=== PATIENT | female | born 1975 ===

== ENCOUNTER 2017-05-28 22:07 | Emergency (ER) | payer OTHER ==
[2017-05-28 22:22] VITALS: BP 115/78; PULSE 70; RESP 19; TEMP 98.3; O2SAT 99
[2017-05-28 22:43] LABS: RBC URINE < 1 /hpf (0-3); URINE BACTERIA RARE (<OCC); URINE BILIRUBIN NEGATIVE (NEGATIVE); URINE BLOOD NEGATIVE (NEGATIVE); URINE COLOR Yellow (YELLOW); URINE GLUCOSE (UA) NORMAL (Normal); URINE KETONE NEGATIVE (NEGATIVE); URINE LEUKOCYTE ESTERASE NEG Leu/uL (Negative); URINE PROTEIN NEGATIVE (NEGATIVE); URINE UROBILINOGEN NORMAL mg/dL (0.2-1.0); WBC URINE 2 /hpf (0-5)
--- NOTE | 2017-05-28 22:49 | C.PDOC ---
History Of Present Illness 42 ye female w/PMHx of sciatica come in for evaluation of Right sided lower back pain for apst 4 days radiating down to Right leg. Pt sts, pain is gradually worse, exacerbated by movement. Pt admits, similar sx in past. Otherwise, pt denies fever, chills, known direct trauma or injury, abd. pain, N/ V, UTI sx, incontinence, saddle anesthesia, denies weakness, sensory or vascular deficits to B/L LEs. Ambulate to Ed for evaluation, not in any apparent distress. Time Seen by Provider: 05/28/17 22:26 Chief Complaint (Nursing): Back Pain History Per: Patient Onset/Duration Of Symptoms: Gradual Past Medical History Reviewed: Historical Data, Nursing Documentation, Vital Signs Vital Signs: Last Vital Signs Temp 98.3 F 05/28/17 22:18 Pulse 70 05/28/17 22:18 Resp 19 05/28/17 22:18 BP 115/78 05/28/17 22:18 Pulse Ox 99 05/28/17 22:49 - Medical History PMH: Back Problems Other PMH: Obesity Surgical History: No Surg Hx Family History: States: No Known Family Hx - Social History Hx Alcohol Use: No Hx Substance Use: No - Immunization History Hx Tetanus Toxoid Vaccination: No Hx Influenza Vaccination: No Hx Pneumococcal Vaccination: No Review Of Systems Except As Marked, All Systems Reviewed And Found Negative. Constitutional: Negative for: Fever, Chills ENT: Negative for: Throat Pain, Throat Swelling Cardiovascular: Negative for: Chest Pain Respiratory: Negative for: Cough, Shortness of Breath Gastrointestinal: Negative for: Nausea, Vomiting, Abdominal Pain Genitourinary: Negative for: Dysuria, Frequency, Incontinence Skin: Negative for: Rash Neurological: Negative for: Weakness, Numbness, Altered Mental Status, Headache , Dizziness Physical Exam - Physical Exam Appears: Well, Non-toxic, No Acute Distress Skin: Normal Color, Warm, No Rash, No Ecchymosis Head: Normacephalic Throat: No Erythema, No Exudate, No Drooling Neck: Supple Cardiovascular: Rhythm Regular Respiratory: No Decreased Breath Sounds, No Accessory Muscle Use, No Stridor, No Wheezing Gastrointestinal/Abdominal: Soft, Tenderness, No Organomegaly, No Distention, No Guarding Back: No CVA Tenderness, No Vertebral Tenderness, Decreased ROM (L-spine due to pain), Muscle Spasm (lumbar paraspinal), Paraspinal Tenderness (Right sided lumbar) Extremity: Normal ROM, No Tenderness, No Pedal Edema, No Deformity Neurological/Psych: Oriented x3, Normal Speech, Normal Motor, Normal Sensation, Normal Reflexes ED Course And Treatment - Laboratory Results Urine POC: Negative O2 Sat by Pulse Oximetry: 99 Progress Note: On re-eval, pt is afebrile, hemodynamicaly stable. Non-toxic. AMbulatory in ED with stable gait. Neck: Supple. ENT: no acute findings. Abd : benign, (-) guardng, (-) rebound. Back: (-) CVA tenderness. Neurological intact. UA results review and appears normal. Pt has clinical findings c/w lower back strain r/o lumbar radiculopathy. Pt advised and ref. to F/u with PMD in 2-3 days for re-eavl. return to ED if any worsening or new changes. Disposition Counseled Patient/Family Regarding: Studies Performed, Diagnosis, Need For Followup, Rx Given - Disposition Referrals: Kennedy Cloud MD [Primary Care Provider] - Disposition: HOME/ ROUTINE Disposition Time: 22:59 Condition: STABLE Additional Instructions: AVOID HEAVY LIFTING, BENDING FORWARDS OR ANY PHYSICAL ACTIVITY FOR 1 WEEK TAKE MEDICATION PRESCRIBED NEED FOR PAIN FOLLOW UP WITH PMD IN 2-3 DAYS FOR RE-EVALUATION. RETURN TO ED IF ANY WORSENING OR NEW CHANGES. Prescriptions: Methocarbamol [Robaxin] 500 mg PO TID #14 tab traMADol [Ultram] 50 mg PO TID #7 tab Instructions: Back Pain (ED), Lumbar Radiculopathy (ED) Forms: [facility] (N[place]ien), Work Excuse Print Language: TURKMEN - Clinical Impression Clinical Impression: Lumbar radiculopathy
== END 2017-05-28 23:08 | disposition home or self-care (01) ==
LOC: C.ER 22:07 → SUPCPDRO 22:07 → C.ER 23:08
DX: M54.16 Radiculopathy, lumbar region (principal)

== ENCOUNTER 2018-12-24 23:21 | Emergency (ER) | payer SELFPAY ==
[2018-12-24 23:42] VITALS: RESP 16; O2SAT 100
[2018-12-25 01:27] VITALS: BP 124/75; PULSE 84; TEMP 98.9
--- NOTE | 2018-12-25 01:41 | C.PDOC ---
History Of Present Illness 43 year old female diagnosed with flu 2-3 days ago, given tamiflu and ibuprofen which he has been taking every 4 hours, presents with fever, SOB, and feeling tired. Last ibuprofen taken around 8pm. Denies nausea, vomiting, or diarrhea. Time Seen by Provider: 12/25/18 00:25 Chief Complaint (Nursing): Flu-like Symptoms History Per: Patient History/Exam Limitations: no limitations Onset/Duration Of Symptoms: Days (2-3) Current Symptoms Are (Timing): Still Present Associated Symptoms: Fever, Other (SOB, Tired). denies: Nausea, Vomiting, Diarrhea Recent travel outside of the [place]: No Past Medical History Reviewed: Historical Data, Nursing Documentation, Vital Signs Vital Signs: Last Vital Signs Temp 98.9 F 12/25/18 01:26 Pulse 84 12/25/18 01:26 Resp 16 12/25/18 01:26 BP 124/75 12/25/18 01:26 Pulse Ox 100 12/25/18 01:26 - Medical History PMH: Back Problems Family History: States: Unknown Family Hx - Social History Hx Alcohol Use: No Hx Substance Use: No - Immunization History Hx Tetanus Toxoid Vaccination: No Hx Influenza Vaccination: No Hx Pneumococcal Vaccination: No Review Of Systems Constitutional: Positive for: Fever, Other (Tired) Eyes: Negative for: Pain, Redness ENT: Negative for: Mouth Swelling Cardiovascular: Negative for: Chest Pain, Palpitations Respiratory: Positive for: Shortness of Breath. Negative for: Cough Gastrointestinal: Negative for: Nausea, Vomiting, Diarrhea Genitourinary: Negative for: Dysuria, Hematuria Musculoskeletal: Negative for: Back Pain Skin: Negative for: Rash Neurological: Negative for: Weakness, Numbness Physical Exam - Physical Exam Appears: Non-toxic, Other (Ill) Skin: Normal Color, No Rash, Other (Hot to touch) Head: Atraumatic, Normacephalic Eye(s): bilateral: Normal Inspection, PERRL, EOMI Ear(s): Bilateral: Normal Nose: Normal Oral Mucosa: Moist Throat: Normal (No swelling or injection), No Exudate, Other (Airway patent) Neck: Normal ROM, Supple Chest: Symmetrical Cardiovascular: Rhythm Regular Respiratory: Normal Breath Sounds, No Accessory Muscle Use, Other (Normal inspiratory effort) Gastrointestinal/Abdominal: Soft, No Distention Neurological/Psych: Oriented x3, Normal Speech, Normal Cranial Nerves (Grossly intact) Gait: Steady ED Course And Treatment O2 Sat by Pulse Oximetry: 100 (Room air) Pulse Ox Interpretation: Normal - Radiology CXR: Interpreted by Me, Viewed By Me CXR Interpretation: Yes: Other (Possible early pneumonia) Medical Decision Making Medical Decision Making: CXR shows possible early pneumonia, will start on zithromax, stable for dc. Disposition Counseled Patient/Family Regarding: Diagnosis, Need For Followup, Rx Given - Disposition Disposition: HOME/ ROUTINE Disposition Time: 01:40 Condition: STABLE Prescriptions: Azithromycin [Zithromax] 250 mg PO DAILY #4 tab Instructions: Pneumonia, Adult (DC) Forms: [facility] Discharge Inst Martiniquais, [employer] (Martiniquais) Print Language: HEBREW - Clinical Impression Clinical Impression: Community acquired bacterial pneumonia - PA / JAVA [employer] ARCHITECT / Resident Statement MD/DO has reviewed & agrees with the documentation as recorded. - Scribe Statement The provider has reviewed the documentation as recorded by the Scribe Vinnie Lisa All medical record entries made by the Scribe were at my direction and personally dictated by me. I have reviewed the chart and agree that the record accurately reflects my personal performance of the history, physical exam, medical decision making, and the department course for this patient. I have also personally directed, reviewed, and agree with the discharge instructions and disposition.
--- NOTE | 2018-12-25 10:37 | RAD ---
Date of service: 12/25/2018 HISTORY: Evaluate for pneumonia COMPARISON: No prior. TECHNIQUE: Chest PA and lateral FINDINGS: LINES AND TUBES: None. LUNG AND PLEURA: The lungs are well inflated and clear. No pleural effusion or pneumothorax. HEART AND MEDIASTINUM: The heart is not enlarged. No aortic atherosclerotic calcifications present. The hilar and mediastinal contours are within normal limits. SKELETAL STRUCTURES: The bony structures are within normal limits for the patient's age. VISUALIZED UPPER ABDOMEN: Normal. OTHER FINDINGS: None. IMPRESSION: No active pulmonary disease.
== END 2018-12-25 02:06 | disposition home or self-care (01) ==
LOC: C.ER 23:21
DX: J15.9 Unspecified bacterial pneumonia (principal)